=== PATIENT | female | born 1960 | race African-American/Black ===

== ENCOUNTER 2025-01-23 18:56 | Inpatient (IN) | payer OTHER, MEDICARE ==
[~2025-01-23] VITALS: Ht 172.7 cm; Wt 120.2 kg
[2025-01-23 19:01] VITALS: O2SAT 98
[2025-01-23] MEDS ORDERED: LORAZEPAM 2MG/ML UD SYRINGE ONE (19:40)
[2025-01-23] MEDS ORDERED: LEVETIRACETAM 1000MG PREMIX 100 ML IV ONE (19:45)
[2025-01-23] MEDS: LEVETIRACETAM 1000MG PREMIX 100 ML IV SCH (20:15)
[2025-01-23] MEDS: LORAZEPAM 2MG/ML UD SYRINGE IV NR (20:18)
[2025-01-23 20:19] LABS: BASOPHILS % 0.4 % (0.0-2.0); EOSINOPHILS % 2.9 % (0.0-5.0); HEMATOCRIT. 33.1 % (36.0-48.0); HEMOGLOBIN. 10.8 g/dL (12.0-16.0); LYMPHOCYTES % 15.9 % (20.0-50.0); MEAN PLATELET VOLUME 7.3 fl (7.4-10.4); MONOCYTES % 6.3 % (2.0-8.0); NEUTROPHILS % 74.5 % (40.0-76.0); PLATELET 289 x1000/uL (130-400); RED BLOOD CELL COUNT 3.89 mill/uL (4.2-5.4); RED CELL DISTRIBUTION WIDTH 15.9 % (11.6-14.6)
[2025-01-23 20:36] LABS: CREATININE 0.9 mg/dL (0.6-1.0)
[2025-01-23 20:37] LABS: ETHANOL BLOOD < 10 mg/dL (<10); UREA NITROGEN BLOOD 13 mg/dL (9-23)
[2025-01-23 20:38] LABS: ASPARTATE AMINOTRANSFERASE 20 IU/L (<34)
[2025-01-23 20:39] LABS: BILIRUBIN DIRECT 0.1 mg/dL (<=3.0); BILIRUBIN TOTAL 0.3 mg/dL (0.1-1.0); PROTEIN TOTAL 7.3 g/dL (6.0-8.3)
[2025-01-23] MEDS ORDERED: TEMO5CAP MT (20:49)
[2025-01-23] MEDS ORDERED: TEMO20CA MT (20:49)
[2025-01-23] MEDS ORDERED: [UNRECOGNIZED DRUG - CODE] MT (20:49)
[2025-01-23 20:54] LABS: INR 1.1
[2025-01-23] MEDS: IOHEXOL-350 100 ML BOTTLE ONE (22:13)
[2025-01-23] MEDS ORDERED: DEXTROSE 50% WATER 50ML SYRINGE IV PRN (22:30)
[2025-01-23] MEDS: BLOOD SUGAR DIAGNOSTIC STRIP TEST SCH (23:38)
[2025-01-24] VITALS (51 sets, daily range): BP systolic 103–146; BP diastolic 46–110; PULSE 40–99; RESP 10–27; TEMP 36.1–36.7; O2SAT 97–100
[2025-01-24 00:57] LABS: *AMPHETAMINES SCREEN URINE NEGATIVE (NEGATIVE); *BARBITURATES SCREEN URINE NEGATIVE (NEGATIVE); *BENZODIAZEPINES SCREEN URINE NEGATIVE (NEGATIVE); *COCAINE SCREEN URINE NEGATIVE (NEGATIVE); CANNABINOID URINE SCREEN NEGATIVE (NEGATIVE); ECSTASY MDMA SCREEN URINE NEGATIVE (NEGATIVE); METHADONE URINE SCREEN NEGATIVE (NEGATIVE); OPIATES URINE SCREEN NEGATIVE (NEGATIVE); PHENCYCLIDINE URINE SCREEN NEGATIVE (NEGATIVE)
[2025-01-24 01:16] LABS: CLARITY URINE CLOUDY (CLEAR); COLOR URINE YELLOW (YELLOW); GLUCOSE URINE NEGATIVE (NEGATIVE); KETONES URINE NEGATIVE (NEGATIVE); LEUKOCYTE ESTERASE URINE TRACE (NEGATIVE); NITRITE URINE NEGATIVE (NEGATIVE); OCCULT BLOOD URINE NEGATIVE (NEGATIVE); PH URINE 5.5 (4.5-8.0); PROTEIN URINE NEGATIVE (NEGATIVE); SPECIFIC GRAVITY URINE 1.043 (1.005-1.030); UROBILINOGEN URINE 0.2 E.U./dL (0.2-1.0)
[2025-01-24 01:17] LABS: RBC URINE NONE SEEN /hpf (0-2)
[2025-01-24 01:18] LABS: BACTERIA URINE TRACE; SQUAMOUS EPITHELIAL CELL URINE 1+ /lpf (RARE/1+)
[2025-01-24] MEDS ORDERED: NICARDIPINE 50 MG in SODIUM CHLORIDE 0.9% 230 ML IV PRN (04:30)
[2025-01-24] MEDS ORDERED: NICARDIPINE 40MG/200ML PREMIX 200 ML IV PRN (04:30)
[2025-01-24] MEDS: DEXT 5%/LACTATED RINGERS 1,000 ML IV SCH (04:38)
[2025-01-24 05:54] LABS: TROPONIN I HIGH SENSITIVITY 12 ng/L (3.0-34)
[2025-01-24 05:56] LABS: TRIGLYCERIDE 120 mg/dL (0-150); UREA NITROGEN BLOOD 10 mg/dL (9-23)
[2025-01-24 05:57] LABS: LDL CHOLESTEROL 52 mg/dL (5-100)
[2025-01-24 05:58] LABS: T4 FREE 1.12 ng/dL (0.89-1.76)
[2025-01-24 06:02] LABS: BASOPHILS % 0.6 % (0.0-2.0); EOSINOPHILS % 3.6 % (0.0-5.0); HEMATOCRIT. 31.3 % (36.0-48.0); HEMOGLOBIN. 10.4 g/dL (12.0-16.0); LYMPHOCYTES % 16.3 % (20.0-50.0); MEAN PLATELET VOLUME 7.4 fl (7.4-10.4); MONOCYTES % 5.9 % (2.0-8.0); NEUTROPHILS % 73.6 % (40.0-76.0); PLATELET 281 x1000/uL (130-400); RED BLOOD CELL COUNT 3.72 mill/uL (4.2-5.4); RED CELL DISTRIBUTION WIDTH 15.9 % (11.6-14.6)
[2025-01-24 06:08] LABS: CREATININE 0.8 mg/dL (0.6-1.0)
[2025-01-24] MEDS: LEVETIRACETAM 500MG PREMIX 100 ML IV SCH (08:08)
[2025-01-24] MEDS ORDERED: LEVETIRACETAM 1,000MG in NACL 100ML PREMIX IV SCH (09:00)
[2025-01-24] MEDS ORDERED: LEVETIRACETAM 1000MG PREMIX 100 ML IV SCH (09:00)
[2025-01-24] MEDS ORDERED: ONDANSETRON HCL 4MG/2ML INJ IV PRN (16:15)
[2025-01-24] MEDS ORDERED: *PATIENT'S OWN MEDICATION STORAGE XX SCH (17:00)
[2025-01-25] VITALS: BP 119/58; PULSE 50; RESP 17; TEMP 36.2; O2SAT 97
[2025-01-25 04:00] VITALS: BP 117/62; PULSE 50; RESP 11; TEMP 36; O2SAT 100
[2025-01-25 08:00] VITALS: BP 109/60; PULSE 50; RESP 14; TEMP 36.7; O2SAT 100
[2025-01-25] MEDS: PANTOPRAZOLE SODIUM 40 MG/VIAL IV SCH (08:47)
[2025-01-25 12:00] VITALS: BP 126/46; PULSE 45; RESP 14; TEMP 36.8; O2SAT 100
[2025-01-25 12:38] VITALS: BP_DIAS 126; PULSE 45; RESP 46; TEMP 98.3
== END 2025-01-25 14:15 | disposition home or self-care (01) | DRG 65 ==
LOC: ER 18:56 → MICUSO 19:51 → EDBEDREQTM 19:58 → EDBEDREQSVC 19:58 → EDBEDREQ 19:58 → ENRESERV 01-24 02:28 → 3WST 01-24 18:31
PROVIDERS: ADMIT Internal Medicine; ATTEND Internal Medicine
DX: I62.9 Nontraumatic intracranial hemorrhage, unspecified (principal); C71.9 Malignant neoplasm of brain, unspecified; G93.40 Encephalopathy, unspecified; D68.9 Coagulation defect, unspecified; R56.9 Unspecified convulsions; I10 Essential (primary) hypertension; J45.909 Unspecified asthma, uncomplicated; E11.9 Type 2 diabetes mellitus without complications; R00.1 Bradycardia, unspecified; E78.5 Hyperlipidemia, unspecified; Z91.148 Patient's other noncompliance with medication regimen for other reason; Z79.899 Other long term (current) drug therapy; Z91.128 Patient's intentional underdosing of medication regimen for other reason; Z92.21 Personal history of antineoplastic chemotherapy; Z92.3 Personal history of irradiation
CPT/HCPCS: 36415; 70496; 70498; 70551; 71045; 80048; 80061; 80076; 80305; 80320; 81003; 82962; 83036; 83605; 84439; 84443; 84484; 85025; 92610; 93005; 97162; 99285; J1953; J2060; J2470; J7121; Q9967; G0480